=== PATIENT | male | born 1995 | race Caucasian/White ===

== ENCOUNTER 2018-02-02 20:47 | Emergency (ER) | payer SELFPAY ==
[~2018-02-02] VITALS: Ht 180.3 cm; Wt 93.9 kg
[~2018-02-02 20:47] MED LIST: AMOXICILLIN500 MG PO; BACTRIM DS 8001 TA1 PO; HYDROCODONE BIT1 T11 PO; MOTRIN600 MG PO; MOTRIN800 MG PO; NKHM; SEROQUEL XR150 MG PO; TRAMADOL HCL50 MG PO
== END 2018-02-02 22:29 | disposition home or self-care (01) ==
LOC: ED 20:47
DX: R51 Headache (principal); H53.8 Other visual disturbances

== ENCOUNTER 2018-06-11 12:21 | Emergency (ER) | payer SELFPAY ==
[~2018-06-11] VITALS: Wt 95.3 kg
[2018-06-11] MEDS ORDERED: NAPROSYN500 MG PO (13:07)
[2018-06-11] MEDS ORDERED: Tobrex Ophth S2.5 ML OPH (13:07)
== END 2018-06-11 13:40 | disposition home or self-care (01) ==
LOC: ED 12:21
DX: S05.02XA Injury of conjunctiva and corneal abrasion without foreign body, left eye, initial encounter (principal); S05.01XA Injury of conjunctiva and corneal abrasion without foreign body, right eye, initial encounter; H16.133 Photokeratitis, bilateral; W89.8XXA Exposure to other man-made visible and ultraviolet light, initial encounter; Y93.89 Activity, other specified; Y92.098 Other place in other non-institutional residence as the place of occurrence of the external cause; Y99.8 Other external cause status

== ENCOUNTER 2018-06-20 18:33 | Emergency (ER) | payer SELFPAY ==
[~2018-06-20] VITALS: Wt 90.7 kg
[~2018-06-20 18:33] MED LIST changes: +NAPROSYN500 MG PO; +Tobrex Ophth S2.5 ML OPH
[2018-06-20] MEDS ORDERED: TOBRAMYCIN 5 ML5 M1 OPH (18:51)
[2018-06-20] MEDS ORDERED: ACULAR 0.5%3 ML OPH (18:51)
== END 2018-06-20 19:15 | disposition home or self-care (01) ==
LOC: ED 18:33
DX: H16.133 Photokeratitis, bilateral (principal); J34.89 Other specified disorders of nose and nasal sinuses

== ENCOUNTER → 2021-08-25 | Outpatient (CLI) | payer OTHER ==
[~2021-08-25] MED LIST changes: +ACULAR 0.5%3 ML OPH; +TOBRAMYCIN 5 ML5 M1 OPH
== END ==
LOC: COVID19 16:48
PROVIDERS: ATTEND Family Medicine
DX: U07.1 COVID-19 (principal)

== ENCOUNTER 2021-12-20 00:27 | Emergency (ER) | payer OTHER ==
[2021-12-20] MEDS ORDERED: 'CIPRO500 M1 PO (02:06)
== END 2021-12-20 02:47 | disposition home or self-care (01) ==
LOC: ED 00:27
DX: S91.331A Puncture wound without foreign body, right foot, initial encounter (principal); W22.8XXA Striking against or struck by other objects, initial encounter; Y93.89 Activity, other specified; Y92.89 Other specified places as the place of occurrence of the external cause; Y99.8 Other external cause status

== ENCOUNTER 2022-03-05 14:25 | Emergency (ER) | payer OTHER ==
[~2022-03-05] VITALS: Wt 99.8 kg
[~2022-03-05 14:25] MED LIST changes: +'CIPRO500 M1 PO
[2022-03-05 15:08] LABS: BASO % 0.3 % (0.0-1.0); EOS # 0.3 10*3/uL (0.0-0.4); EOS % 2.7 % (1.0-4.0); HEMATOCRIT 43.8 % (42.0-52.0); LYMPH % 28.7 % (27.0-41.0); MEAN CELL VOLUME 93.6 fl (80.0-94.0); MEAN CORPUSCULAR HGB 31.6 pg (27.0-31.0); MEAN CORPUSCULAR HGB CONC 33.8 g/dl (33.0-37.0); MEAN PLATELET VOLUME 9.9 fl (9.6-12.3); MONO # 0.8 10*3/uL (0.1-1.0); MONO % 7.9 % (3.0-9.0); NEUT # 6.4 10*3/uL (2.3-7.9); NEUT % 60.1 % (47.0-73.0); PLATELET COUNT AUTOMATED 291 10*3/uL (130-400); RED BLOOD COUNT 4.68 10*6/uL (4.50-5.90); RED CELL DISTRI WIDTH 13.2 % (0-14.5); WHITE BLOOD COUNT 10.6 10*3/uL (4.8-10.8)
[2022-03-05 15:32] LABS: ALKALINE PHOSPHATASE 72 U/L (45-117); BUN 7 mg/dl (7-24); CHLORIDE 103 mmol/L (98-107); CREATININE 0.83 mg/dL (0.70-1.30); POTASSIUM 4.5 mmol/L (3.5-5.1); SGOT/AST 17 IU/L (3-35); SGPT/ALT 16 U/L (12-78); SODIUM 139 mmol/L (136-145); TOTAL PROTEIN 7.2 gm/dL (6.4-8.2)
[2022-03-05] MEDS ORDERED: TYLENOL325 M1 PO (19:02)
[2022-03-05] MEDS ORDERED: NAPROXEN250 MG PO (19:02)
[2022-03-05] MEDS ORDERED: AMOX-CLAV 875-1 EACH PO (19:02)
== END 2022-03-05 20:36 | disposition home or self-care (01) ==
LOC: ED 14:25
PROVIDERS: Emergency Medicine
DX: L03.116 Cellulitis of left lower limb (principal); L03.115 Cellulitis of right lower limb; Z90.89 Acquired absence of other organs

== ENCOUNTER 2022-10-13 13:11 | Emergency (ER) | payer OTHER ==
[~2022-10-13] VITALS: Ht 175.2 cm; Wt 95.3 kg
[~2022-10-13 13:11] MED LIST changes: +AMOX-CLAV 875-1 EACH PO; +NAPROXEN250 MG PO; +TYLENOL325 M1 PO
== END 2022-10-13 15:38 | disposition left against medical advice (07) ==
LOC: ED 13:11
DX: S09.90XA Unspecified injury of head, initial encounter (principal); Z53.21 Procedure and treatment not carried out due to patient leaving prior to being seen by health care provider; X58.XXXA Exposure to other specified factors, initial encounter; Y93.89 Activity, other specified; Y92.89 Other specified places as the place of occurrence of the external cause; Y99.8 Other external cause status

== ENCOUNTER 2022-10-28 13:58 | Emergency (ER) | payer OTHER ==
[~2022-10-28] VITALS: Ht 182.8 cm; Wt 95.3 kg
[2022-10-28] MEDS ORDERED: CLEOCIN HCL150 MG PO (16:20)
== END 2022-10-28 16:45 | disposition home or self-care (01) ==
LOC: ED 13:58
DX: K08.89 Other specified disorders of teeth and supporting structures (principal); Z90.89 Acquired absence of other organs

== ENCOUNTER 2022-12-18 21:46 | Emergency (ER) | payer OTHER ==
[~2022-12-18] VITALS: Ht 182.8 cm; Wt 89.4 kg
[~2022-12-18 21:46] MED LIST changes: +CLEOCIN HCL150 MG PO
[2022-12-18] MEDS ORDERED: PENICILLIN VK500 MG PO (22:46)
== END 2022-12-18 23:19 | disposition home or self-care (01) ==
LOC: ED 21:46
DX: S02.5XXA Fracture of tooth (traumatic), initial encounter for closed fracture (principal); K04.7 Periapical abscess without sinus; K08.89 Other specified disorders of teeth and supporting structures; Z90.89 Acquired absence of other organs; Z98.890 Other specified postprocedural states; X58.XXXA Exposure to other specified factors, initial encounter; Y93.89 Activity, other specified; Y92.009 Unspecified place in unspecified non-institutional (private) residence as the place of occurrence of the external cause; Y99.8 Other external cause status

== ENCOUNTER 2022-12-28 17:52 | Emergency (ER) | payer OTHER ==
[~2022-12-28] VITALS: Ht 175.2 cm; Wt 95.3 kg
[~2022-12-28 17:52] MED LIST changes: +PENICILLIN VK500 MG PO
== END 2022-12-28 18:30 | disposition home or self-care (01) ==
LOC: ED 17:52
DX: R21 Rash and other nonspecific skin eruption (principal); Z90.89 Acquired absence of other organs; Z98.890 Other specified postprocedural states

== ENCOUNTER 2023-01-04 21:21 | Emergency (ER) | payer OTHER ==
[~2023-01-04] VITALS: Ht 182.8 cm; Wt 95.3 kg
[2023-01-04] MEDS ORDERED: IBUPROFEN600 MG PO (22:39)
[2023-01-04] MEDS ORDERED: AMOXICILLIN500 M2 PO (22:39)
== END 2023-01-04 22:42 | disposition home or self-care (01) ==
LOC: ED 21:21
DX: K04.7 Periapical abscess without sinus (principal)

== ENCOUNTER 2023-03-19 02:23 | Emergency (ER) | payer OTHER ==
[~2023-03-19] VITALS: Ht 182.8 cm; Wt 95.3 kg
[~2023-03-19 02:23] MED LIST changes: +AMOXICILLIN500 M2 PO; +AMOXICILLIN875 MG PO; +HYDROCODONE-AC1 EAC1 PO; +IBUPROFEN600 MG PO; +Motrin,Rufen800 MG PO
[2023-03-19] MEDS ORDERED: AMOX-CLAV 875-1 EACH PO (02:44)
== END 2023-03-19 03:13 | disposition home or self-care (01) ==
LOC: ED 02:23
DX: K08.89 Other specified disorders of teeth and supporting structures (principal); Z90.89 Acquired absence of other organs

== ENCOUNTER 2023-12-11 13:00 | Emergency (ER) | payer OTHER ==
[~2023-12-11] VITALS: Ht 180.3 cm; Wt 77.1 kg
[2023-12-11] MEDS ORDERED: AMOXICILLIN500 M3 PO (14:16)
[2023-12-11] MEDS ORDERED: IBUPROFEN600 MG PO (14:16)
[2023-12-11] MEDS ORDERED: TYLENOL325 M1 PO (14:16)
== END 2023-12-11 14:24 | disposition home or self-care (01) ==
LOC: ED 13:00
DX: K02.9 Dental caries, unspecified (principal); Z90.89 Acquired absence of other organs

== ENCOUNTER 2024-12-09 05:21 | Emergency (ER) | payer OTHER ==
[~2024-12-09] VITALS: Ht 175.2 cm; Wt 77.1 kg
[~2024-12-09 05:21] MED LIST changes: +AMOXICILLIN500 M3 PO
[2024-12-09] MEDS ORDERED: AMOXICILLIN500 M2 PO (06:28)
[2024-12-09] MEDS ORDERED: AMOXICILLIN 500 MG CAP PO ONE (06:30)
[2024-12-09] MEDS ORDERED: traMADol Hydrochloride 50 MG TAB PO ONE (06:30)
== END 2024-12-09 06:38 | disposition home or self-care (01) ==
LOC: ED 05:21
DX: K04.7 Periapical abscess without sinus (principal); K02.9 Dental caries, unspecified; Z79.2 Long term (current) use of antibiotics; Z79.899 Other long term (current) drug therapy